=== PATIENT | male | born 1975 | race Two or more races ===

== ENCOUNTER 2018-11-08 09:32 | Emergency (ER) | payer OTHER ==
[~2018-11-08] VITALS: Ht 170.2 cm; Wt 77.1 kg
[2018-11-08] MEDS ORDERED: KETOROLAC TROMETH 30 MG/ML 1ML VIAL IV ONE (10:00)
[2018-11-08] MEDS ORDERED: ASPirin 81 mg TAB PO ONE (10:00)
[2018-11-08 10:19] LABS: Basophils # (auto) 0 uL; Basophils % (auto) 0.3 % (0.0-2.0); Eosinophils # (auto) 0.1 uL; Eosinophils % (auto) 0.8 % (0.0-7.0); Hematocrit 46.1 % (41.0-53.0); Hemoglobin 15.9 g/dL (13.5-17.5); Lymphocytes # (auto) 1.5 uL; Lymphocytes % (auto) 15.2 % (10.0-50.0); Mean Corpuscular Hemoglobin 31.6 pg (28.0-32.0); Mean Corpuscular Hgb Conc. 34.5 g/dL (32.0-36.0); Mean Corpuscular Volume 91.5 fL (80.0-100.0); Monocytes # (auto) 0.9 uL; Neutrophils # (auto) 7.5 uL; Neutrophils % (auto) 74.7 % (37.0-80.0); Platelet Count (auto) 320 10^3/uL (140-450); Red Blood Cells 5.04 10^6/uL (4.5-5.90); Red Cell Distribution Width 13.4 % (11.8-14.3)
[2018-11-08 10:32] LABS: Anion Gap 4 (5-15); Blood Urea Nitrogen 16 mg/dL (7-18); Calcium 9.3 mg/dL (8.5-10.1); Carbon Dioxide 29 mmol/L (21-32); Chloride 105 mmol/L (98-107); Glucose 116 mg/dL (74-106); Magnesium 2.2 mg/dL (1.6-2.6); Potassium 4.2 mmol/L (3.5-5.1); Sodium 138 mmol/L (136-145)
[2018-11-08 10:40] LABS: Alanine Aminotransferase 38 U/L (16-61); Alkaline Phosphatase 81 U/L (45-117); Aspartate Aminotransferase 21 U/L (15-37); Bilirubin, Total 0.8 mg/dL (0.2-1.0); GFR African American 121 mL/min; GFR Non-African American 100 mL/min; Total Protein 7.6 g/dL (6.4-8.2)
[2018-11-08 11:59] VITALS: BP 130/87
== END 2018-11-08 12:31 | disposition home or self-care (01) ==
LOC: ER 09:32
DX: R07.89 Other chest pain (principal)
CPT/HCPCS: 36415; 71046; 80053; 83735; 84484; 85025; 93005; 94761; 96374; 99284; J1885

== ENCOUNTER 2019-04-02 07:32 | Emergency (ER) | payer BC, OTHER ==
[~2019-04-02] VITALS: Ht 152.4 cm; Wt 3.2 kg
[2019-04-02 07:50] VITALS: BP 122/70
[2019-04-02] MEDS ORDERED: KETOROLAC TROMETH 60MG/2ML VIAL IM ONE (08:30)
== END 2019-04-02 09:13 | disposition home or self-care (01) ==
LOC: ER 07:38
DX: S82.891A Other fracture of right lower leg, initial encounter for closed fracture (principal); X50.1XXA Overexertion from prolonged static or awkward postures, initial encounter; Y93.89 Activity, other specified; Y99.8 Other external cause status; Y92.89 Other specified places as the place of occurrence of the external cause
CPT/HCPCS: 29515; 73600; 99283; J1885

== ENCOUNTER 2019-04-07 06:53 | Day surgery (SDC) | payer BC ==
[~2019-04-07] VITALS: Ht 170.2 cm; Wt 74.8 kg
[2019-04-07 08:29] LABS: Basophils # (auto) 0 uL; Basophils % (auto) 0.4 % (0.0-2.0); Eosinophils # (auto) 0.2 uL; Eosinophils % (auto) 3.1 % (0.0-7.0); Hematocrit 39.9 % (41.0-53.0); Hemoglobin 13.6 g/dL (13.5-17.5); Lymphocytes # (auto) 1.7 uL; Lymphocytes % (auto) 31.1 % (10.0-50.0); Mean Corpuscular Hemoglobin 31.7 pg (28.0-32.0); Mean Corpuscular Hgb Conc. 34.2 g/dL (32.0-36.0); Mean Corpuscular Volume 92.6 fL (80.0-100.0); Monocytes # (auto) 0.6 uL; Monocytes % (auto) 11.2 % (0.0-12.0); Neutrophils # (auto) 2.9 uL; Neutrophils % (auto) 54.2 % (37.0-80.0); Platelet Count (auto) 272 10^3/uL (140-450); Red Blood Cells 4.31 10^6/uL (4.5-5.90); Red Cell Distribution Width 13.4 % (11.8-14.3); White Blood Cell 5.3 10^3/uL (4.4-10.8)
[2019-04-07 08:44] LABS: BUN/Creatinine Ratio 33.3; Calcium 8.9 mg/dL (8.5-10.1); Potassium 4.2 mmol/L (3.5-5.1)
[2019-04-07 09:10] LABS: Partial Thromboplastin Time 27.6 sec (23.64-32.05)
[2019-04-07] MEDS ORDERED: ceFAZolin 1GM/50ML 50 ML IV ONE (09:16)
[2019-04-07] MEDS ORDERED: BUPIVACAINE 0.25% INJ 50ML VIAL ONE (09:24)
[2019-04-07] MEDS ORDERED: PHENYLEPHRINE HCL 10 MG/ML VL IV ONE (09:35)
[2019-04-07] MEDS ORDERED: KETOROLAC TROMETH 30 MG/ML 1ML VIAL IV ONE (09:35)
[2019-04-07] MEDS ORDERED: DexAMETHasone SOD PHOS 10MG/1ML VIAL INJ IV ONE (09:35)
[2019-04-07] MEDS ORDERED: fentaNYL CITRATE 100 MCG/2 ML VL ONE (09:42)
[2019-04-07] MEDS ORDERED: MEPERIDINE HCL (25 MG/ML) 1ML VIAL ONE (09:42)
[2019-04-07] MEDS ORDERED: MIDAZOLAM HCL 1MG/1ML-2 ML VIAL ONE (09:42)
[2019-04-07] MEDS ORDERED: PROPOFOL 10 MG/ML 20 ML IV ONE (10:09)
[2019-04-07] MEDS ORDERED: ONDANSETRON HCL 4 MG/2 ML VIAL IV ONE (10:15)
[2019-04-07] MEDS ORDERED: LABETALOL HCL 5 MG/ML 4ML SYRINGE IV PRN (10:15)
[2019-04-07] MEDS ORDERED: KETOROLAC TROMETH 15 mg/ml 1ML VL IV ONE (10:15)
[2019-04-07] MEDS ORDERED: ePHEDrine SULFATE 50 MG/ML AMP IV PRN (10:15)
[2019-04-07] MEDS ORDERED: MIDAZOLAM HCL 1MG/1ML-2 ML VIAL IV PRN (10:15)
[2019-04-07] MEDS: HYDROmorphone HCL 2 MG/ML VL IV PRN ×2 (11:18→11:29)
[2019-04-07 11:48] VITALS: BP 102/61
[2019-04-07] MEDS ORDERED: MORPHINE SULFATE 4 MG/ML SYR/VIAL IV ONE (12:00)
== END 2019-04-07 11:59 | disposition home or self-care (01) ==
LOC: SUR 06:53
PROVIDERS: ATTEND Orthopaedic Surgery
DX: S93.421A Sprain of deltoid ligament of right ankle, initial encounter (principal); S93.491A Sprain of other ligament of right ankle, initial encounter; F12.90 Cannabis use, unspecified, uncomplicated; F17.200 Nicotine dependence, unspecified, uncomplicated; X50.1XXA Overexertion from prolonged static or awkward postures, initial encounter; Y93.89 Activity, other specified; Y92.89 Other specified places as the place of occurrence of the external cause; Y99.8 Other external cause status
CPT/HCPCS: 27695; 27829; 36415; 73600; 76000; 80048; 85025; 85610; 85730; C1713; J0690; J1100; J1170; J1885; J2175; J2250; J2370; J2704; J3010; J3490

== ENCOUNTER 2020-10-04 16:19 | Emergency (ER) | payer BC, OTHER ==
[~2020-10-04] VITALS: Ht 170.2 cm; Wt 77.1 kg
[2020-10-04] MEDS ORDERED: IOHEXOL 350 MG/ML 100ML IJ ONE (16:42)
[2020-10-04] MEDS ORDERED: cefTRIAXone SOD 1,000 MG VL IM ONE (19:00)
[2020-10-04] MEDS ORDERED: CLINDAMYCIN HCL 150 MG CAP PO ONE (19:00)
[2020-10-04] MEDS ORDERED: HYDROcodone-ACET 10/325MG TAB PO ONE (19:45)
[2020-10-04 20:35] VITALS: BP 154/89
== END 2020-10-04 20:42 | disposition home or self-care (01) ==
LOC: ER 16:19
DX: S61.431A Puncture wound without foreign body of right hand, initial encounter (principal); L03.113 Cellulitis of right upper limb; W54.0XXA Bitten by dog, initial encounter; Y93.89 Activity, other specified; Y92.89 Other specified places as the place of occurrence of the external cause; Y99.8 Other external cause status
CPT/HCPCS: 71260; 73130; 74177; 96372; 99285; J0696; Q9967